=== PATIENT | female | born 1990 | race Caucasian/White ===

== ENCOUNTER 2016-06-16 14:26 | Emergency (ER) | payer MEDICAID, OTHER ==
[~2016-06-16 14:26] MED LIST: PREN1CAP33 PO
--- NOTE | 2016-06-16 15:29 | PD ---
HPI Chief Complaint SOB, back pain, headache Date Seen: Jun 16, 2016 Travel History International Travel<30 Days: No Contact w/Intl Traveler<30Days: No History of Present Illness HPI Ms. Joyce is a 25-year-old 012 at 28 weeks gestation (patient of [facility]) who presents with complaints of shortness of breath, headache, and recent upper back pain. Patient states that back pain began occurring suddenly last night and has resolved. Patient states approximately 1 week ago she began having shortness of breath and intermittent headaches. Patient states that shortness of breath is with activity. Patient denies wheezing, cough, or upper respiratory congestion. Patient states that headaches are not associated with visual symptoms or nausea. Will movement. Patient denies vaginal bleeding, vaginal discharge, chest pain, or other symptoms. Patient reports history of gestational hypertension with her first gestation, but denies problems with her most recent gestation. Patient reports unremarkable history with exception of anemia. Patient states that she has been anemic chronically, has required iron supplementation for sometime. Patient does not report family history of anemia, and states that she had large menstrual periods prior to becoming . Patient does not report knowledge of any bleeding disorder. Per review of labs, patient had most recent hemoglobin of 9.4 in 2015. Patient Rh-, needs Rhogam Para: 2 : 3 History Past Medical History Narrative Medical Anemia Gestational hypertension Obstetric History Obstetric History 002 Full term vaginal delivery 5 years ago Full term vaginal delivery 2 years ago GHTN 1 of 2 prior gestations Past Surgical History Surgical History: No Previous Surgery Family History Family History: Negative Social History Alcohol Use: No Tobacco Use: No Substance Abuse: No Allergies-Medications (Allergen,Severity, Reaction): Coded Allergies: No Known Allergies (Verified , 06/08/16) Home Meds Active Scripts Vit W/ Fe Polysacch C (Vitafol Fe+ 90-1-200 & 50 mg)1 Cap Cap1 Tab PO DAILY #30 BOTTLE Ref 11 Prov:Therese Arnett 01/20/16 Vit W/ Fe Polysacch C (Vitafol Fe+ 90-1-200 & 50 mg)1 Cap Cap Sample #2 Prov:Therese Arnett 01/20/16 Review of Systems General / Constitutional: No: Fever, Chills Cardiovascular: No: Chest Pain or Discomfort Respiratory: Short of Breath, No: Cough, Wheezing Gastrointestinal: No: Nausea, Vomiting Genitourinary: No: Urgency, Dysuria Physical Exam HR 94 BP 107/69 O2 sat 100% Narrative GENERAL: Well-nourished, well-developed patient. SKIN: Warm and dry. HEAD: Normocephalic and atraumatic. EYES: No scleral icterus. No injection or drainage. ENT: No nasal drainage noted. Mucous membranes pink. Airway patent. NECK: Supple, trachea midline. No JVD. CARDIOVASCULAR: Regular rate and rhythm without murmurs. Normal rate currently; mild tachycardia on initial HR RESPIRATORY: CTAB, normal rate. No nasal flaring or signs of distress. ABDOMEN/GI: Abdomen soft, non-tender, bowel sounds present, no rebound, no guarding Gravid EXTREMITIES: No cyanosis or edema. BACK: Nontender without obvious deformity. No CVA tenderness. NEUROLOGICAL: Awake and alert. Motor and sensory function grossly within normal limits. GENITOURINARY: External Genitalia: intact and normal in appearance Cervix: Dilatation: 1cm Effacement: 30% Station: -3 Membranes: Intact Uterine Contractions: Irritability FHT's: Category: 1 Baseline: 130 Reactive: Y Variability: Mod Decels: None MDM Medical Record Reviewed: Yes Interpretation(s) 25-year-old 012 at 28 weeks gestation (patient of [facility]) -SOB, headache x1 week -PMH anemia; last Hgb 9.4 -VS- normotensive, normal HR. O2 Sat 100% -Cat 1 rhythm -Occ contractions -Cervix 1/30%/-3 Plan: -Patient encouraged to take Ferrous Sulfate 325mg BID -F/U with PCP at [facility] in 3-5 days -Will give Terbutaline 0.25mg x1 for contractions Contractions ceased following Terbutaline; patient discharged home Diagnosis Diagnosis: Primary Impression: Anemia complicating Disposition: 01 DISCHARGE HOME Condition: Stable Tom Lomas MD R2 Jun 16, 2016 15:29
[2016-06-16] MEDS ORDERED: TERBUTALINE INJ 1 MG/ML AMP ONE (15:48)
[2016-06-16] MEDS ORDERED: TERBUTALINE INJ 1 MG/ML AMP SQ ONE (16:00)
--- NOTE | 2016-06-16 16:31 | PD ---
History of Present Illness Date Seen: Jun 16, 2016 History of Present Illness This patient is 25-year-old white female at 29 weeks who is followed by the [facility]. She presents complaining of shortness of breath, headache, back pain between the scapula has resolved prior to getting here patient's heart rate tracing is reactive and she is having a few small amplitude contractions. Cervix is closed to fingertip at the external os. The patient was given 1 singles subcutaneous shot this terbutaline 25 in the contractions went away, she has no CVA tenderness on exam and her lungs are clear to auscultation her pulse ox is 98-99% saturation and a respiratory rate is normal Impression is headache shortness of breath back pain all relatively normal pains and problem seen in . She is encouraged to bedrest as much as possible increase her fluid intake use Tylenol liberally for pain and heating pad or hot bath as well for other symptoms. She is to follow-up with her OB provider Holden Ruiz II, MD Jun 16, 2016 16:31
[2016-06-16] MEDS ORDERED: FERR325T PO (16:40)
[2016-08-18] MEDS ORDERED: AMOX500C PO (10:03)
== END 2016-06-16 17:01 | disposition home or self-care (01) ==
LOC: HOBED 14:26
DX: O99.013 Anemia complicating pregnancy, third trimester (principal); R51 Headache; R06.02 Shortness of breath; M54.9 Dorsalgia, unspecified
CPT/HCPCS: 96372; 99284; J3105

== ENCOUNTER 2016-08-21 05:22 | Inpatient (IN) | payer MEDICAID, OTHER ==
[2016-08-21] VITALS (14 sets, daily range): BP systolic 112–148; BP diastolic 68–90; PULSE 71–86; RESP 16–18; TEMP 97.7–98.8; O2SAT 99–100
[~2016-08-21 05:22] MED LIST changes: +AMOX500C PO; +FERR325T PO
[2016-08-21] MEDS ORDERED: FAMOTIDINE 20 MG TAB PO STA (05:34)
[2016-08-21] MEDS ORDERED: LIDOCAINE HCL 1% 50 ML VIAL ONE (05:41)
[2016-08-21] MEDS ORDERED: OXYTOCIN 30 UNITS-500ML PREMIX 500 ML ONE (05:41)
[2016-08-21] MEDS ORDERED: OXYTOCIN 10 UNIT/ML AMP ONE ×2 (05:43→05:49)
--- NOTE | 2016-08-21 05:43 | PD ---
HPI Chief Complaint Contractions Date Seen: Aug 21, 2016 Time Seen: 05:42 Travel History International Travel<30 Days: No Contact w/Intl Traveler<30Days: No Known Affected Area: No History of Present Illness HPI 26-year-old at 37 weeks and 4 days comes in complaining of contractions that began earlier this morning with spontaneous rupture membranes at 04 10 and appeared to be clear. Patient has had an uncomplicated care and she is group B strep positive. 2 prior uncomplicated vaginal deliveries Para: 2 : 4 Miscarriage: 1 History Past Medical History Medical History: Denies Significant Hx Obstetric History Obstetric History 2 Past Surgical History Surgical History: No Previous Surgery Family History Family History: Negative Social History Alcohol Use: No Tobacco Use: No Substance Abuse: No Allergies-Medications (Allergen,Severity, Reaction): Coded Allergies: No Known Allergies (Verified , 08/18/16) Home Meds Active Scripts Amoxicillin 500 Mg [id number] Mg PO TID #30 CAP Ref 0 Prov:Therese Arnett 08/18/16 Vit W/ Fe Polysacch C (Vitafol Fe+ 90-1-200 & 50 mg)1 Cap Cap1 Tab PO DAILY #30 BOTTLE Ref 11 Prov:Therese ArnettP 01/20/16 Vit W/ Fe Polysacch C (Vitafol Fe+ 90-1-200 & 50 mg)1 Cap Cap Sample #2 Prov:Therese Arnett [facility] 01/20/16 Reported Medications Ferrous Sulfate 325 Mg [id number] Mg PO BID #60 TAB Ref 0 06/16/16 Review of Systems Except as stated in HPI: all other systems reviewed are Neg Physical Exam Narrative GENERAL: Well-nourished, well-developed patient. SKIN: Warm and dry. HEAD: Normocephalic and atraumatic. EYES: No scleral icterus. No injection or drainage. ENT: No nasal drainage noted. Mucous membranes pink. Airway patent. NECK: Supple, trachea midline. No JVD. CARDIOVASCULAR: Regular rate and rhythm without murmurs, gallops, or rubs. RESPIRATORY: Breath sounds equal bilaterally. No accessory muscle use. BREASTS: Bilateral exam showed no masses , no retractions, no nipple discharge. ABDOMEN/GI: Abdomen soft, non-tender, bowel sounds present, no rebound, no guarding Gravid to [-] weeks size Fundal Height: [-37] GENITOURINARY: External Genitalia: intact and normal in appearance BUS glands: [-Normal] Cervix: [8-] Dilatation: [-] Effacement: [100] Station: [-2-] Presentation: [-] Membranes: [ruptured] Uterine Contractions: [-] FHT's: Category: [1-] Baseline: [150-] Reactive: [-Moderate] Variability: [-Moderate] Decels: [-Absent] EXTREMITIES: No cyanosis or edema. BACK: Nontender without obvious deformity. No CVA tenderness. NEUROLOGICAL: Awake and alert. Motor and sensory grossly within normal limits. Five out of 5 muscle strength in all muscle groups. Normal speech. Data Data Orders Famotidine (Pepcid) (08/21/16 05:34) Ob (2e) Additional Admit Info (08/21/16 05:38) MDM Medical Record Reviewed: Yes Plan 26-year-old who is at 37 weeks 4 days in advance labor anticipate a very quick vaginal delivery Patient is group B strep positive but it is unlikely that adequate treatment will be completed prior to delivery Diagnosis Diagnosis: Primary Impression: Mother positive for group B Streptococcus colonization Additional Impressions: with 37 weeks completed gestation 37 weeks gestation of Labor, sherrieous Miranda Hooker MD Aug 21, 2016 05:43
[2016-08-21] MEDS ORDERED: LACTATED RINGER'S 1000 ML INJ 1,000 ML IV PRN (05:57)
--- NOTE | 2016-08-21 05:57 | HHI.HP ---
History & Physical H&P HPI HPI Chief Complaint Contractions Date Seen: Aug 21, 2016 Time Seen: 05:42 Travel History International Travel<30 Days: No Contact w/Intl Traveler<30Days: No Known Affected Area: No History of Present Illness HPI 26-year-old at 37 weeks and 4 days comes in complaining of contractions that began earlier this morning with spontaneous rupture membranes at 04 10 and appeared to be clear. Patient has had an uncomplicated care and she is group B strep positive. 2 prior uncomplicated vaginal deliveries Para: 2 : 4 Miscarriage: 1 History (Limited) History Past Medical History Medical History: Denies Significant Hx Obstetric History Obstetric History 2 Past Surgical History Surgical History: No Previous Surgery Family History Family History: Negative Social History Alcohol Use: No Tobacco Use: No Substance Abuse: No Allergies-Medications Allergies-Medications (Allergen,Severity, Reaction): Coded Allergies: No Known Allergies (Verified , 08/18/16) Home Meds Active Scripts Amoxicillin 500 Mg [id number] Mg PO TID #30 CAP Ref 0 Prov:Therese Arnett 08/18/16 Vit W/ Fe Polysacch C (Vitafol Fe+ 90-1-200 & 50 mg)1 Cap Cap1 Tab PO DAILY #30 BOTTLE Ref 11 Prov:Therese Arnett 01/20/16 Vit W/ Fe Polysacch C (Vitafol Fe+ 90-1-200 & 50 mg)1 Cap Cap Sample #2 Prov:Therese Arnett 01/20/16 Reported Medications Ferrous Sulfate 325 Mg [id number] Mg PO BID #60 TAB Ref 0 06/16/16 ROS Review of Systems Except as stated in HPI: all other systems reviewed are Neg Physical Exam Physical Exam Narrative GENERAL: Well-nourished, well-developed patient. SKIN: Warm and dry. HEAD: Normocephalic and atraumatic. EYES: No scleral icterus. No injection or drainage. ENT: No nasal drainage noted. Mucous membranes pink. Airway patent. NECK: Supple, trachea midline. No JVD. CARDIOVASCULAR: Regular rate and rhythm without murmurs, gallops, or rubs. RESPIRATORY: Breath sounds equal bilaterally. No accessory muscle use. BREASTS: Bilateral exam showed no masses , no retractions, no nipple discharge. ABDOMEN/GI: Abdomen soft, non-tender, bowel sounds present, no rebound, no guarding Gravid to [-] weeks size Fundal Height: [-37] GENITOURINARY: External Genitalia: intact and normal in appearance BUS glands: [-Normal] Cervix: [8-] Dilatation: [-] Effacement: [100] Station: [-2-] Presentation: [-] Membranes: [ruptured] Uterine Contractions: [-] FHT's: Category: [1-] Baseline: [150-] Reactive: [-Moderate] Variability: [-Moderate] Decels: [-Absent] EXTREMITIES: No cyanosis or edema. BACK: Nontender without obvious deformity. No CVA tenderness. NEUROLOGICAL: Awake and alert. Motor and sensory grossly within normal limits. Five out of 5 muscle strength in all muscle groups. Normal speech. Data Data Data Orders Famotidine (Pepcid) (08/21/16 05:34) Ob (2e) Additional Admit Info (08/21/16 05:38) MDM MDM Medical Record Reviewed: Yes Plan 26-year-old who is at 37 weeks 4 days in advance labor anticipate a very quick vaginal delivery Patient is group B strep positive but it is unlikely that adequate treatment will be completed prior to delivery Diagnosis Diagnosis: Primary Impression: Mother positive for group B Streptococcus colonization Additional Impressions: with 37 weeks completed gestation 37 weeks gestation of Labor, Miranda Hughes MD Aug 21, 2016 05:57
[2016-08-21 05:58] LABS: MEAN CORPUSCULAR HGB CONC 29.9 % (32.0-36.0)
[2016-08-21] MEDS ORDERED: OXYTOCIN 30 UNITS-500ML PREMIX 500 ML IV ONE (06:00)
[2016-08-21] MEDS ORDERED: ZOLPIDEM TARTRATE 5 MG TAB PO PRN (06:00)
[2016-08-21] MEDS ORDERED: SODIUM CHLORID 0.9% 500 ML INJ 500 ML IV PRN (06:00)
[2016-08-21] MEDS ORDERED: MINERAL OIL 10 ML VIAL TOPICAL PRN (06:00)
[2016-08-21] MEDS ORDERED: WITCH HAZEL 50%/GLYCERIN 12.5% 40 PAD JAR TOPICAL PRN (06:00)
[2016-08-21] MEDS ORDERED: ALUMINUM/MAGNESIUM/SIMETH 30 ML CUP PO PRN (06:00)
[2016-08-21] MEDS ORDERED: ONDANSETRON ODT 4 MG TAB PO PRN (06:00)
[2016-08-21] MEDS ORDERED: BENZOCAINE 20% TOPICAL SPRAY 60 ML CAN TOPICAL PRN (06:00)
[2016-08-21] MEDS ORDERED: CITRIC ACID-SODIUM CITRATE LIQ 30 ML UDC PO SCH (06:00)
[2016-08-21] MEDS ORDERED: DOCUSATE SODIUM 50 MG/SENNA 8.6 MG TAB PO PRN (06:00)
[2016-08-21] MEDS ORDERED: oxyCODONE/ACETAMINOPHEN 5 MG/325 MG TAB PO PRN (06:00)
[2016-08-21] MEDS ORDERED: LIDOCAINE HCL 1% 50 ML VIAL I-DERMAL PRN (06:00)
[2016-08-21] MEDS ORDERED: LIDOCAINE HCL 1% 50 ML VIAL INFIL PRN (06:00)
[2016-08-21] MEDS ORDERED: SODIUM CHLORIDE 0.9% FLUSH 10 ML FLUSH IV FLUSH PRN (06:00)
[2016-08-21] MEDS ORDERED: SODIUM CHLOR 0.9% 1000 ML INJ 1,000 ML IV PRN (06:17)
[2016-08-21 06:19] LABS: BLOOD, URINE NEG (NEG); COMMENT (UR) CULT NOT INDICATED; CULTURE IF INDICATED CULT NOT INDICATED; GLUCOSE,URINE NEG (NEG); KETONE, URINE NEG (NEG); MUCUS URINE FEW /lpf (OCC); NITRITE,URINE NEG (NEG); PH, URINE 6.5 (5.0-8.5); SQUAMOUS EPITHELIAL CELL URINE 2 /hpf (0-5); URINE COLOR YELLOW (YELLW/STRAW)
[2016-08-21 06:25] LABS: AUTOMATED NEUTROPHIL # 5.7 TH/MM3 (1.8-7.7); BASOPHIL % 0.4 % (0.0-2.0); EOSINOPHIL % 0.3 % (0.0-4.0); LYMPH % 22.7 % (9.0-44.0); LYMPHOCYTE # 1.8 TH/MM3 (1.0-4.8); MEAN CELL VOLUME 58.4 FL (80.0-100.0); MEAN CORPUSCULAR HEMOGLOBIN 17.5 PG (27.0-34.0); MONO % 5.9 % (0.0-8.0); NEUT % 70.7 % (16.0-70.0); PLATELET COUNT 203 TH/MM3 (150-450); RED BLOOD COUNT 3.12 MIL/MM3 (4.00-5.30); RED CELL DISTRIBUTION WIDTH 19.5 % (11.6-17.2); WHITE BLOOD COUNT 8.1 TH/MM3 (4.0-11.0)
[2016-08-21 06:29] LABS: HEMO FLAGS AUTO DIFF
[2016-08-21 06:31] LABS: HEMATOCRIT 18.2 % (35.0-46.0)
[2016-08-21 07:08] LABS: PLATELET ESTIMATE SMEAR NORMAL (NORMAL); PLATELET MORPHOLOGY ENLARGED (NORMAL)
[2016-08-21 07:09] LABS: KERATOCYTES OCC (NORMAL); SCAN/DIFF AUTO DIFF CONFIRMED
[2016-08-21 07:20] LABS: REVIEW FLAG FINAL
[2016-08-21 07:21] LABS: HEMATOCRIT 17.3 % (35.0-46.0)
[2016-08-21] MEDS: IBUPROFEN 600 MG TAB PO PRN ×3 (07:41→21:17)
[2016-08-21] MEDS ORDERED: SODIUM CHLOR 0.9% 250 ML INJ 250 ML IV ONE (08:00)
[2016-08-21] MEDS ORDERED: ACETAMINOPHEN 325 MG TAB PO PRN (08:00)
[2016-08-21 08:01] LABS: AMPHETAMINE, URINE NEG (NEG); BARBITURATES, URINE NEG (NEG); COCAINE, URINE NEG (NEG)
[2016-08-21] MEDS ORDERED: SODIUM CHLORIDE 0.9% FLUSH 10 ML FLUSH IV FLUSH SCH (09:00)
[2016-08-21] MEDS: ACETAMINOPHEN 325 MG TAB PO PRN ×3 (10:54→21:17)
[2016-08-21] MEDS ORDERED: MEASLES, MUMPS, RUBELLA VACCINE 0.5 ML VIAL SQ ONE (16:00)
[2016-08-21] MEDS ORDERED: DIPHTH/TETANUS/ACEL PERTUSSIS (BOOSTER) 0.5 ML VIAL/PFS IM ONE (16:00)
[2016-08-21 17:49] LABS: HEMATOCRIT 23.2 % (35.0-46.0); REVIEW FLAG FINAL
[2016-08-22] MEDS: LACTATED RINGER'S 1000 ML INJ 1,000 ML IV SCH ×2 (05:57→13:57)
--- NOTE | 2016-08-22 07:30 | HHI.OB ---
Subjective Post Day: 1 Remarks day # 1 AFVSS overnight. Decreased lochia. Denies dysuria. No breast tenderness. She is feeding the baby via breast. Appetite good. No nausea or vomiting. Ambulating well. Denies calf pain or shortness of breath. Otherwise, she is doing well this morning and has no other concerns. Objective Vitals/I&O Vital Signs Date Time Temp Pulse Resp B/P Pulse Ox O2 Delivery O2 Flow Rate FiO2 08/21/16 21:00 97.8 75 16 112/87 08/21/16 16:00 77 18 132/78 100 08/21/16 16:00 98.4 08/21/16 13:01 98.8 76 18 128/76 100 08/21/16 12:45 98.3 86 18 148/79 08/21/16 12:40 98.3 86 16 148/79 100 08/21/16 10:45 120/79 08/21/16 10:45 72 99 08/21/16 10:45 97.7 72 18 120/79 99 08/21/16 10:35 99 08/21/16 10:30 97.8 71 18 142/72 08/21/16 10:27 97.8 71 18 142/72 Objective Remarks GENERAL: Well-nourished, well-developed female in no apparent distress. CARDIOVASCULAR: Regular rate and rhythm without murmurs, gallops, or rubs. RESPIRATORY: Breath sounds equal bilaterally. No accessory muscle use. ABDOMEN/GI: Abdomen soft, non-tender. Fundus: Firm, non-tender at umbilicus. GENITOURINARY: Light to moderate bleeding. EXTREMITIES: No cyanosis or edema, non-tender, without signs of DVT. Medications and IVs Current Medications Medications (Trade) Dose Ordered Sig/La Route Start Time Stop Time Status Last Admin Lactated Ringer's 1,000 ml @ 125 mls/hr Q8H IV 08/21/16 05:57 Lactated Ringer's 1,000 ml @ 3,000 mls/hr Q20M PRN IV 08/21/16 05:57 (NS 1000 ml Inj) 1,000 ml @ 100 mls/hr Q10H PRN IV 08/21/16 06:17 (fentaNYL INJ) 50 mcg Q1H PRN IV PUSH 08/21/16 06:00 (fentaNYL INJ) 100 mcg Q1H PRN IV PUSH 08/21/16 06:00 (Muri-Lube Oil) 10 ml UNSCH PRN TOPICAL 08/21/16 06:00 (NS Flush) 2 ml BID IV FLUSH 08/21/16 09:00 (NS Flush) 2 ml UNSCH PRN IV FLUSH 08/21/16 06:00 (Tylenol) 650 mg Q4H PRN PO 08/21/16 06:00 08/21/16 21:17 (Motrin) 600 mg Q6H PRN PO 08/21/16 06:00 08/21/16 21:17 (Percocet 5-325 Mg) 2 tab Q4H PRN PO 08/21/16 06:00 (Americaine 20% Top Spr) 1 spray Q4H PRN TOPICAL 08/21/16 06:00 08/21/16 10:54 (Tucks Pads) 1 applic QID PRN TOPICAL 08/21/16 06:00 08/21/16 10:54 (Kacie-Colace) 2 tab Q12H PRN PO 08/21/16 06:00 (Ambien) 5 mg HS PRN PO 08/21/16 06:00 (Mag-Al Plus Susp Liq) 15 ml Q8H PRN PO 08/21/16 06:00 (Zofran Odt) 4 mg Q6H PRN PO 08/21/16 06:00 Assessment/Plan Problem List: (1) Spontaneous vaginal delivery Assessment and Plan 26 y/o female who is PPD# 1 s/p . -Continue routine care. -Tylenol and Motrin PRN pain. -Encouraged OOB. Advised pelvic rest for 6 wks. -Re: ctrl, she would like tubal ligation. She signed consents prior to and intends to re-consent as outpatient through [facility]. -Anticipate discharge today or tomorrow. Anemia -Hgb 5.4 on admission. S/p 2U PRBCs, with repeat 7.1/23.2. Patient is asymptomatic. -Will discharge with recommendation to take iron-containing prenatals SHELBY Ruiz and Floridalma Canchola MD R1 Aug 22, 2016 07:30
[2016-08-22 08:02] LABS: MEAN CORPUSCULAR HGB CONC 29.6 % (32.0-36.0)
[2016-08-22 08:09] VITALS: BP 137/85; PULSE 95; RESP 18; TEMP 98.3
[2016-08-22] MEDS: FERROUS SULFATE 325 MG (65 MG ELEMENTAL IRON) TAB PO SCH ×3 (09:10→18:14)
[2016-08-22] MEDS: IBUPROFEN 600 MG TAB PO PRN ×2 (09:11→18:14)
[2016-08-22] MEDS: ACETAMINOPHEN 325 MG TAB PO PRN ×2 (09:11→18:14)
[2016-08-22 09:48] LABS: HEMATOCRIT 23.8 % (35.0-46.0); MEAN CELL VOLUME 63.9 FL (80.0-100.0); MEAN CORPUSCULAR HEMOGLOBIN 18.9 PG (27.0-34.0); PLATELET COUNT 205 TH/MM3 (150-450); RED BLOOD COUNT 3.73 MIL/MM3 (4.00-5.30); RED CELL DISTRIBUTION WIDTH 23.5 % (11.6-17.2); REVIEW FLAG FINAL; WHITE BLOOD COUNT 9.5 TH/MM3 (4.0-11.0)
[2016-08-22 21:00] VITALS: BP 145/82; PULSE 55; RESP 18; TEMP 97.7
[2016-08-23] MEDS: ACETAMINOPHEN 325 MG TAB PO PRN (05:20)
[2016-08-23] MEDS: IBUPROFEN 600 MG TAB PO PRN (05:20)
[2016-08-23 06:01] LABS: HEMATOCRIT 22.8 % (35.0-46.0); REVIEW FLAG FINAL
[2016-08-23] MEDS ORDERED: ACET1TAB86 PO (06:14)
[2016-08-23] MEDS ORDERED: IBUP-232 PO (06:14)
--- NOTE | 2016-08-23 06:14 | HHI.DCPOC ---
Discharge Care Plan Diagnosis: (1) Anemia complicating (2) Spontaneous vaginal delivery Report Symptoms to Your Doctor -Temperature above 100.5 degrees -Redness, of incision or excessive or foul smelling drainage -Unusual pain or calf pain -Increased vaginal bleeding -Painful or difficulty urinating -Feelings of extreme sadness or anxiety after 2 weeks Goals to Promote Your Health * To prevent worsening of your condition and complications * To maintain your health at the optimal level Directions to Meet Your Goals Take your medications as prescribed Follow your dietary instruction Follow activity as directed Ensure plenty of rest for recovery Drink fluids for hydration Keep your appointments as scheduled Take your immunizations and boosters as scheduled If your symptoms worsen call your PCP, if no PCP go to Urgent Care Center or Emergency Room Smoking is Dangerous to Your Health. Avoid second hand smoke Call the 24-hour crisis hotline for domestic abuse at Floridalma Landeros MD R1 Aug 23, 2016 06:14
--- NOTE | 2016-08-23 06:44 | HHI.OB ---
Subjective Post Day: 2 Remarks day # 2. AFVSS overnight. Decreased lochia. Denies dysuria. No breast tenderness. She is feeding the baby via breast. Appetite good. No nausea or vomiting. Ambulating well. Denies calf pain or shortness of breath. Otherwise, she is doing well this morning and has no other concerns. She denies dizziness, shortness of breath, fatigue and notes she was taking iron during for her anemia. She wants to go home this morning. (Floridalma Landeros MD R1) Objective Vitals/I&O Vital Signs Date Time Temp Pulse Resp B/P Pulse Ox O2 Delivery O2 Flow Rate FiO2 08/22/16 21:00 97.7 08/22/16 21:00 55 18 145/82 08/22/16 08:09 98.3 95 18 137/85 Objective Remarks GENERAL: Well-nourished, well-developed female in no apparent distress. CARDIOVASCULAR: Regular rate and rhythm without murmurs, gallops, or rubs. RESPIRATORY: Breath sounds equal bilaterally. No accessory muscle use. ABDOMEN/GI: Abdomen soft, non-tender. Fundus: Firm, non-tender at umbilicus. GENITOURINARY: Light to moderate bleeding. EXTREMITIES: No cyanosis or edema, non-tender, without signs of DVT. Medications and IVs Current Medications Medications (Trade) Dose Ordered Sig/La Route Start Time Stop Time Status Last Admin Lactated Ringer's 1,000 ml @ 125 mls/hr Q8H IV 08/21/16 05:57 Lactated Ringer's 1,000 ml @ 3,000 mls/hr Q20M PRN IV 08/21/16 05:57 (NS 1000 ml Inj) 1,000 ml @ 100 mls/hr Q10H PRN IV 08/21/16 06:17 (fentaNYL INJ) 50 mcg Q1H PRN IV PUSH 08/21/16 06:00 (fentaNYL INJ) 100 mcg Q1H PRN IV PUSH 08/21/16 06:00 (Muri-Lube Oil) 10 ml UNSCH PRN TOPICAL 08/21/16 06:00 (NS Flush) 2 ml BID IV FLUSH 08/21/16 09:00 (NS Flush) 2 ml UNSCH PRN IV FLUSH 08/21/16 06:00 (Tylenol) 650 mg Q4H PRN PO 08/21/16 06:00 08/23/16 05:20 (Motrin) 600 mg Q6H PRN PO 08/21/16 06:00 08/23/16 05:20 (Percocet 5-325 Mg) 2 tab Q4H PRN PO 08/21/16 06:00 (Americaine 20% Top Spr) 1 spray Q4H PRN TOPICAL 08/21/16 06:00 08/21/16 10:54 (Tucks Pads) 1 applic QID PRN TOPICAL 08/21/16 06:00 08/21/16 10:54 (Kacie-Colace) 2 tab Q12H PRN PO 08/21/16 06:00 (Ambien) 5 mg HS PRN PO 08/21/16 06:00 (Mag-Al Plus Susp Liq) 15 ml Q8H PRN PO 08/21/16 06:00 (Zofran Odt) 4 mg Q6H PRN PO 08/21/16 06:00 (Ferrous Sulfate) 325 mg TIDAC PO 08/22/16 09:00 08/22/16 18:14 (Floridalma Landeros MD R1) Assessment/Plan Problem List: (1) Spontaneous vaginal delivery Assessment and Plan 26 y/o female who is PPD# 2 s/p . -Continue routine care. -Tylenol and Motrin PRN pain. -Encouraged OOB. Advised pelvic rest for 6 wks. -Re: ctrl, she would like tubal ligation. She signed consents prior to and intends to re-consent as outpatient through [facility]. -Anticipate discharge today. Anemia -Hgb 5.4 on admission. S/p 2U PRBCs, with repeat H%H approximately 7.0 x 3, stable. Patient is asymptomatic. -Will discharge with recommendation to continue taking PNV and supplemental iron with stool softeners Will discuss with Dr. Zafar (Floridalma Landeros MD R1) Attestation Patient seen and examined at bedside. Agree with resident's assessment/plan. (Deana Zafar MD) Floridalma Landeros MD R1 Aug 23, 2016 06:44 Deana Zafar MD Aug 23, 2016 09:19
[2016-08-23] MEDS: FERROUS SULFATE 325 MG (65 MG ELEMENTAL IRON) TAB PO SCH (07:25)
[2016-08-23 08:00] VITALS: BP 130/91; PULSE 94; RESP 16; TEMP 98.6
[2016-08-23] MEDS ORDERED: FERR325T20 PO (10:17)
[2016-08-23] MEDS ORDERED: DOCU100C PO (10:17)
[2016-08-25 15:25] LABS: BATH SALTS (MDPV) UR NEG (NEG); ECSTASY (MDMA) UR NEG (NEG); GABAPENTIN UR NEG (NEG); HEROIN (6-ACETYLMORPHINE) UR NEG (NEG); HYDROMORPHONE U NEG (NEG); K2 SPICE UR NEG (NEG); OBMETHADONE UR NEG (NEG); OXYCODONE (PERCODAN) NEG (NEG); PHENCYCLIDINE URINE NEG (NEG)
--- NOTE | 2016-09-01 11:54 | PD.OB.DELI ---
Delivery Date: Aug 21, 2016 Anesthesia: None Episiotomy: None Vaginal Delivery: Normal Presentation: Occiput anterior Nuchal Cord: None Delayed cord clamping (45 sec): Yes Infant: Female One Minute : 8 Five Minute : 9 Weight: 3355gms Placenta: Spontaneous delivery, Intact, 3 vessel cord Laceration: No lacerations Miranda Hooker MD Sep 01, 2016 11:54
== END 2016-08-23 10:35 | disposition home or self-care (01) | DRG 775 ==
LOC: HOBED 05:22 → H2EB 05:41 → H1EA 08:27
PROVIDERS: ADMIT Obstetrics & Gynecology Obstetrics; ATTEND Obstetrics & Gynecology Obstetrics
PROC: 10E0XZZ Delivery of Products of Conception, External Approach (ICD-10-PCS; principal; 2016-08-21)
PROC: 30233N1 Transfusion of Nonautologous Red Blood Cells into Peripheral Vein, Percutaneous Approach (ICD-10-PCS; 2016-08-21)
DX: O99.824 Streptococcus B carrier state complicating childbirth (principal); O62.3 Precipitate labor; O99.02 Anemia complicating childbirth; D64.9 Anemia, unspecified; Z3A.37 37 weeks gestation of pregnancy; Z37.0 Single live birth
CPT/HCPCS: 36430; 59025; 80307; 81001; 85014; 85018; 85025; 85027; 86850; 86900; 86901; 86920; 99285; G0481; J2590; P9016

== ENCOUNTER 2017-07-25 09:27 | Inpatient (IN) | payer MEDICAID ==
[2017-07-25] VITALS (9 sets, daily range): BP systolic 107–126; BP diastolic 53–69; PULSE 68–108; RESP 16–20; TEMP 97.6–98.5; O2SAT 100
[~2017-07-25] VITALS: Ht 170.2 cm; Wt 70.0 kg
[2017-07-25 10:29] LABS: AUTOMATED NEUTROPHIL # 1.7 TH/MM3 (1.8-7.7); BASOPHIL % 0.6 % (0.0-2.0); EOSINOPHIL % 0.5 % (0.0-4.0); LYMPH % 33.9 % (9.0-44.0); MEAN CELL VOLUME 59.4 FL (80.0-100.0); MEAN CORPUSCULAR HEMOGLOBIN 17.2 PG (27.0-34.0); MEAN PLATELET VOLUME 8.6 FL (7.0-11.0); MONO % 8.3 % (0.0-8.0); MONOCYTE # 0.2 TH/MM3 (0-0.9); NEUT % 56.7 % (16.0-70.0); PLATELET COUNT 249 TH/MM3 (150-450); RED BLOOD COUNT 3.16 MIL/MM3 (4.00-5.30)
[2017-07-25 10:34] LABS: HEMOGLOBIN 5.4 GM/DL (11.6-15.3)
[2017-07-25 10:35] LABS: HEMATOCRIT 18.8 % (35.0-46.0)
--- NOTE | 2017-07-25 11:00 | PD ---
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 Patient states she has become short of breath and lightheaded with ambulation over the last 2-3 days. She reports 3 months ago she had her IUD removed and had had light spotting up to this point. [facility], however her insurance is changed and she has not seen her since her most recent normal Pap smear which was when her IUD was removed. Patient denies any pain. She does not think she was recently . She has no other symptoms to report at this time. PFSH Past Medical History Anemia: Yes (BLOOD TRANSFUSIONS ) Diminished Hearing: No Gastrointestinal Disorders: Yes (HEARTBURN ) Hypertension: Yes ( INDUCED ) Medical other: Yes (STD ) Immunizations Current: No Tetanus Vaccination: < 5 Years Influenza Vaccination: No ?: Not LMP: 07/15/17 : 3 Para: 3 Miscarriage: 0 : 0 Past Surgical History Surgical History: No Previous Surgery Social History Alcohol Use: Yes (occ) Tobacco Use: No Substance Use: No Allergies-Medications (Allergen,Severity, Reaction): Coded Allergies: No Known Allergies (Verified , 09/27/16) Reported Meds & Prescriptions Reported Meds & Active Scripts Active Review of Systems Except as stated in HPI: all other systems reviewed are Neg Physical Exam Narrative GENERAL: Well-nourished female patient, no acute distress. SKIN: Focused skin assessment warm/dry. Pallor HEAD: Atraumatic. Normocephalic. EYES: Pupils equal and round. No scleral icterus. No injection or drainage. ENT: No nasal bleeding or discharge. Mucous membranes pink and moist. NECK: Trachea midline. No JVD. CARDIOVASCULAR: Tachycardic rate and rhythm. No murmur appreciated. RESPIRATORY: No accessory muscle use. Clear to auscultation. Breath sounds equal bilaterally. GASTROINTESTINAL: Abdomen soft, non-tender, nondistended. Hepatic and splenic margins not palpable. GENITOURINARY: Normal external genitalia without lesions or erythema. Vaginal vault with large amount of dark red blood. Cervical os was closed with active bleeding. Surrounding cervical cells tissue appeared yellowed and cobblestoning. Moderate cervical motion tenderness. Uterus nontender and nonenlarged. Bilateral adnexa nontender without masses. MUSCULOSKELETAL: No obvious deformities. No clubbing. No cyanosis. No edema. NEUROLOGICAL: Awake and alert. No obvious cranial nerve deficits. Motor grossly within normal limits. Normal speech. PSYCHIATRIC: Appropriate mood and affect; insight and judgment normal. Data Data Last Documented VS Vital Signs Date Time Temp Pulse Resp B/P (MAP) Pulse Ox O2 Delivery O2 Flow Rate FiO2 07/25/17 09:31 98.5 108 20 126/56 (79) 100 Orders Orders Complete Blood Count With Diff (07/25/17 09:35) Comprehensive Metabolic Panel (07/25/17 11:01) Coag Profile (07/25/17 11:01) Type And Screen (07/25/17 11:01) Red Blood Cells (Rbc) (07/25/17 11:01) Blood Product Administration (07/25/17 11:01) Sodium Chlor 0.9% 250 Ml Inj (Ns 250 Ml (07/25/17 11:15) Iv Access Insert/Monitor (07/25/17 11:02) Beta Hcg (Quant/Titer) (07/25/17 11:06) Wet Prep Profile (07/25/17 11:29) Gc And Chlamydia Pcr (07/25/17 11:29) Labs Laboratory Tests Test 07/25/17 10:15 07/25/17 11:41 White Blood Count 3.0 TH/MM3 Red Blood Count 3.16 MIL/MM3 Hemoglobin 5.4 GM/DL Hematocrit 18.8 % Mean Corpuscular Volume 59.4 FL Mean Corpuscular Hemoglobin 17.2 PG Mean Corpuscular Hemoglobin Concent 29.0 % Red Cell Distribution Width 19.0 % Platelet Count 249 TH/MM3 Mean Platelet Volume 8.6 FL Neutrophils (%) (Auto) 56.7 % Lymphocytes (%) (Auto) 33.9 % Monocytes (%) (Auto) 8.3 % Eosinophils (%) (Auto) 0.5 % Basophils (%) (Auto) 0.6 % Neutrophils # (Auto) 1.7 TH/MM3 Lymphocytes # (Auto) 1.0 TH/MM3 Monocytes # (Auto) 0.2 TH/MM3 Eosinophils # (Auto) 0.0 TH/MM3 Basophils # (Auto) 0.0 TH/MM3 CBC Comment DIFF FINAL Differential Comment Prothrombin Time 10.8 SEC Prothromb Time International Ratio 1.1 RATIO Activated Partial Thromboplast Time 21.2 SEC Blood Urea Nitrogen 10 MG/DL Creatinine 0.72 MG/DL Random Glucose 90 MG/DL Total Protein 8.4 GM/DL Albumin 3.6 GM/DL Calcium Level 8.7 MG/DL Alkaline Phosphatase 63 U/L Aspartate Amino Transf (AST/SGOT) 14 U/L Alanine Aminotransferase (ALT/SGPT) 18 U/L Total Bilirubin 0.6 MG/DL Sodium Level 143 MEQ/L Potassium Level 3.8 MEQ/L Chloride Level 108 MEQ/L Carbon Dioxide Level 25.1 MEQ/L Anion Gap 10 MEQ/L Estimat Glomerular Filtration Rate 98 ML/MIN Clue Cells (Wet Prep) NONE SEEN Vaginal Trichomonas (Wet Prep) NONE SEEN Vaginal Yeast (Wet Prep) NONE SEEN MDM Medical Decision Making Medical Screen Exam Complete: Yes Emergency Medical Condition: Yes Medical Record Reviewed: Yes Differential Diagnosis Dysfunctional uterine bleeding versus menses versus miscarriage Narrative Course 27-year-old female with no significant medical history presents to the emergency department for heavy vaginal bleeding 1 week with associated shortness of breath and lightheaded sensation. Patient does have a large amount of dark red blood in the vaginal vault. She is pallor and mildly tachycardic. Laboratory Tests Test 07/25/17 10:15 07/25/17 11:41 White Blood Count 3.0 TH/MM3 Red Blood Count 3.16 MIL/MM3 Hemoglobin 5.4 GM/DL Hematocrit 18.8 % Mean Corpuscular Volume 59.4 FL Mean Corpuscular Hemoglobin 17.2 PG Mean Corpuscular Hemoglobin Concent 29.0 % Red Cell Distribution Width 19.0 % Platelet Count 249 TH/MM3 Mean Platelet Volume 8.6 FL Neutrophils (%) (Auto) 56.7 % Lymphocytes (%) (Auto) 33.9 % Monocytes (%) (Auto) 8.3 % Eosinophils (%) (Auto) 0.5 % Basophils (%) (Auto) 0.6 % Neutrophils # (Auto) 1.7 TH/MM3 Lymphocytes # (Auto) 1.0 TH/MM3 Monocytes # (Auto) 0.2 TH/MM3 Eosinophils # (Auto) 0.0 TH/MM3 Basophils # (Auto) 0.0 TH/MM3 CBC Comment DIFF FINAL Differential Comment Prothrombin Time 10.8 SEC Prothromb Time International Ratio 1.1 RATIO Activated Partial Thromboplast Time 21.2 SEC Blood Urea Nitrogen 10 MG/DL Creatinine 0.72 MG/DL Random Glucose 90 MG/DL Total Protein 8.4 GM/DL Albumin 3.6 GM/DL Calcium Level 8.7 MG/DL Alkaline Phosphatase 63 U/L Aspartate Amino Transf (AST/SGOT) 14 U/L Alanine Aminotransferase (ALT/SGPT) 18 U/L Total Bilirubin 0.6 MG/DL Sodium Level 143 MEQ/L Potassium Level 3.8 MEQ/L Chloride Level 108 MEQ/L Carbon Dioxide Level 25.1 MEQ/L Anion Gap 10 MEQ/L Estimat Glomerular Filtration Rate 98 ML/MIN Clue Cells (Wet Prep) NONE SEEN Vaginal Trichomonas (Wet Prep) NONE SEEN Vaginal Yeast (Wet Prep) NONE SEEN Patient has hemoglobin of 5.4. Type and screen is complete. 2 units packed red blood cells as ordered. I discussed the plan with my attending physician. Patient will be admitted to [facility] for further evaluation. This plan is discussed with the patient. she is in agreement with this plan of care. Diagnosis Primary Impression: Symptomatic anemia Additional Impression: Vaginal bleeding Admitting Information Admitting Physician Requests: Admit Condition: Stable Annalise Anderson July 25, 2017 11:00
[2017-07-25] MEDS ORDERED: SODIUM CHLOR 0.9% 250 ML INJ 250 ML IV ONE (11:15)
[2017-07-25 11:49] LABS: INTERNATIONAL NORMALIZED RATIO 1.1 RATIO; PROTHROMBIN TIME - PATIENT 10.8 SEC (9.8-11.6)
[2017-07-25 12:11] LABS: ALBUMIN 3.6 GM/DL (3.4-5.0); AST (GOT) 14 U/L (15-37); BICARBONATE 25.1 MEQ/L (21.0-32.0); BLOOD UREA NITROGEN 10 MG/DL (7-18); CALCIUM 8.7 MG/DL (8.5-10.1); CHLORIDE 108 MEQ/L (98-107); CREATININE 0.72 MG/DL (0.50-1.00); GLOMERULAR FILTRATION RATE 98 ML/MIN (>89); GLUCOSE,RANDOM 90 MG/DL (74-106); SODIUM (NA) 143 MEQ/L (136-145)
[2017-07-25 12:16] LABS: ALKALINE PHOSPHATASE 63 U/L (45-117); ALT (GPT) 18 U/L (10-53); TOTAL BILIRUBIN ADULT 0.6 MG/DL (0.2-1.0); TOTAL PROTEIN 8.4 GM/DL (6.4-8.2)
[2017-07-25] MEDS: SODIUM CHLOR 0.9% 1000 ML INJ 1,000 ML IV SCH (12:56)
[2017-07-25] MEDS ORDERED: SENNOSIDES 8.6 MG TAB PO PRN (13:00)
[2017-07-25] MEDS ORDERED: MAGNESIUM HYDROXIDE SUSP 30 ML CUP PO PRN (13:00)
[2017-07-25] MEDS ORDERED: BISACODYL 10 MG SUPP RECTAL PRN (13:00)
[2017-07-25] MEDS ORDERED: SODIUM CHLORIDE 0.9% FLUSH 10 ML FLUSH IV FLUSH PRN (13:00)
[2017-07-25] MEDS ORDERED: LACTULOSE SYRUP 20 GM/30 ML CUP PO PRN (13:00)
[2017-07-25] MEDS ORDERED: NALOXONE HCL 0.4 MG/ML AMP IV PUSH PRN (13:00)
--- NOTE | 2017-07-25 15:04 | PD ---
Data Data Last Documented VS Vital Signs Date Time Temp Pulse Resp B/P (MAP) Pulse Ox O2 Delivery O2 Flow Rate FiO2 07/25/17 09:31 98.5 108 20 126/56 (79) 100 Orders Orders Complete Blood Count With Diff (07/25/17 09:35) Comprehensive Metabolic Panel (07/25/17 11:01) Coag Profile (07/25/17 11:01) Type And Screen (07/25/17 11:01) Red Blood Cells (Rbc) (07/25/17 11:01) Blood Product Administration (07/25/17 11:01) Sodium Chlor 0.9% 250 Ml Inj (Ns 250 Ml (07/25/17 11:15) Iv Access Insert/Monitor (07/25/17 11:02) Beta Hcg (Quant/Titer) (07/25/17 11:06) Wet Prep Profile (07/25/17 11:29) Gc And Chlamydia Pcr (07/25/17 11:29) Admit Order (Ed Use Only) (07/25/17 12:58) Admit To Inpatient (07/25/17 ) Vital Signs (Adult) Q4H (07/25/17 12:56) Activity Oob Ad Enriqueta (07/25/17 12:56) Intake + Output JUSTYN.QSHIFT (07/25/17 12:56) Diet Regular Basic (07/25/17 Lunch) Sodium Chlor 0.9% 1000 Ml Inj (Ns 1000 M (07/25/17 12:56) Sodium Chloride 0.9% Flush (Ns Flush) (07/25/17 13:00) Sodium Chloride 0.9% Flush (Ns Flush) (07/25/17 21:00) Complete Blood Count With Diff (07/26/17 06:00) Scd Bilateral/Knee High JUSTYN.BID (07/25/17 12:56) Naloxone Inj (Narcan Inj) (07/25/17 13:00) Docusate Sodium-Senna (Kacie-Colace) (07/25/17 21:00) Magnesium Hydroxide Liq (Milk Of Magnesi (07/25/17 13:00) Sennosides (Senokot) (07/25/17 13:00) Bisacodyl Supp (Dulcolax Supp) (07/25/17 13:00) Lactulose Liq (Lactulose Liq) (07/25/17 13:00) Inpatient Certification (07/25/17 ) Consult Gynecology (07/25/17 ) Labs Laboratory Tests Test 07/25/17 10:15 07/25/17 11:41 White Blood Count 3.0 TH/MM3 Red Blood Count 3.16 MIL/MM3 Hemoglobin 5.4 GM/DL Hematocrit 18.8 % Mean Corpuscular Volume 59.4 FL Mean Corpuscular Hemoglobin 17.2 PG Mean Corpuscular Hemoglobin Concent 29.0 % Red Cell Distribution Width 19.0 % Platelet Count 249 TH/MM3 Mean Platelet Volume 8.6 FL Neutrophils (%) (Auto) 56.7 % Lymphocytes (%) (Auto) 33.9 % Monocytes (%) (Auto) 8.3 % Eosinophils (%) (Auto) 0.5 % Basophils (%) (Auto) 0.6 % Neutrophils # (Auto) 1.7 TH/MM3 Lymphocytes # (Auto) 1.0 TH/MM3 Monocytes # (Auto) 0.2 TH/MM3 Eosinophils # (Auto) 0.0 TH/MM3 Basophils # (Auto) 0.0 TH/MM3 CBC Comment DIFF FINAL Differential Comment Prothrombin Time 10.8 SEC Prothromb Time International Ratio 1.1 RATIO Activated Partial Thromboplast Time 21.2 SEC Blood Urea Nitrogen 10 MG/DL Creatinine 0.72 MG/DL Random Glucose 90 MG/DL Total Protein 8.4 GM/DL Albumin 3.6 GM/DL Calcium Level 8.7 MG/DL Alkaline Phosphatase 63 U/L Aspartate Amino Transf (AST/SGOT) 14 U/L Alanine Aminotransferase (ALT/SGPT) 18 U/L Total Bilirubin 0.6 MG/DL Sodium Level 143 MEQ/L Potassium Level 3.8 MEQ/L Chloride Level 108 MEQ/L Carbon Dioxide Level 25.1 MEQ/L Anion Gap 10 MEQ/L Estimat Glomerular Filtration Rate 98 ML/MIN Human Chorionic Gonadotropin, Quant LESS THAN 1 MIU/ML Clue Cells (Wet Prep) NONE SEEN Vaginal Trichomonas (Wet Prep) NONE SEEN Vaginal Yeast (Wet Prep) NONE SEEN Chlamydia trachomatis DNA (PCR) NOT DETECTED Neisseria gonorrhoeae DNA (PCR) NOT DETECTED MDM Supervised Visit with ADY: Yes Narrative Course The history, exam, and medical decision-making in the associated midlevel provider note were completed with my assistance. I reviewed and agree with the findings presented. I attest that I had a [id number] encounter with the patient on the same day, and personally performed and documented my assessment and findings in the medical record. *My assessment and Findings: This is a 27-year-old female who presents to the emergency department with heavy vaginal bleeding having had her IUD removed 3 months ago. She has been increasingly lightheaded and dizzy. She has a hemoglobin of 5.4 here in the emergency department which is microcytic consistent with likely iron deficiency. Patient will be admitted to the hospital for blood transfusion and gynecology consultation. Her vital signs are reassuring and I suspect this is acute on chronic. Diagnosis Primary Impression: Symptomatic anemia Additional Impression: Vaginal bleeding Condition: Stable Yissel Chatterjee MD July 25, 2017 15:04
--- NOTE | 2017-07-25 15:05 | PD.CONS ---
HPI Chief Complaint Vaginal bleeding Date Seen: July 25, 2017 Travel History International Travel<30 Days: No Contact w/Intl Traveler<30Days: No Known Affected Area: No History of Present Illness HPI The patient is a very pleasant 27-year-old female admitted due to heavy vaginal bleeding 1 week and found to have severe symptomatic anemia with a hemoglobin of 5.4. 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 Patient reports over about the past week she has had very heavy vaginal bleeding. She states she has had to use up to 4 boxes of pads and tampons over the past week, with each box consisting of 14-15 pads or tampons. She denies any current abdominal or pelvic pain. She does endorse having sharp pelvic pain a few days ago lasting for about an hour that resolved with her lying down. She denies any recurrence of this type of pain. She states she did not see a medical provider for this issue at that time or take any medications. She states she was having dyspnea, dizziness when ambulating, and fatigue prior to her admission here. She denies any other abnormal vaginal discharge or pruritus. She states she had a copper IUD removed about 3 months ago. The patient is a , she last delivered in August 2016 and had a copper IUD placed following her delivery for contraception. She states while having her copper IUD in place she had constant spotting. Prior to having this copper IUD placed in prior to her she reported regular menstrual cycles without any heavy bleeding or intermenstrual bleeding. She does endorse a history of iron deficiency anemia. Denies any bleeding disorders or family history of this. She states she is unsure what she would like to use for contraception going forward. Para: 3 : 3 History Past Medical History Narrative Medical Iron deficiency anemia Obstetric History Obstetric History 3 prior vaginal deliveries, 2011, 2014, 2016 Past Surgical History Surgical History: No Previous Surgery Family History Narrative Family History Denies any family history of bleeding disorders, or pertinent uterine or cervical pathology Social History Alcohol Use: Yes (Endorses occasional alcohol intake) Tobacco Use: No Substance Abuse: No Allergies-Medications (Allergen,Severity, Reaction): Coded Allergies: No Known Allergies (Verified Allergy, Unknown, 07/25/17) Review of Systems Except as stated in HPI: all other systems reviewed are Neg Physical Exam Vital Signs Date Time Temp Pulse Resp B/P (MAP) Pulse Ox O2 Delivery O2 Flow Rate FiO2 07/25/17 14:13 97.9 90 18 112/68 100 07/25/17 14:04 102 16 116/63 (80) 99 07/25/17 13:58 98.3 102 16 116/63 100 07/25/17 13:50 97.9 90 18 112/68 (83) 100 07/25/17 09:31 98.5 108 20 126/56 (79) 100 Narrative GENERAL: Well-nourished, well-developed patient. SKIN: Warm and dry. HEAD: Normocephalic and atraumatic. EYES: No scleral icterus. No injection or drainage. ENT: No nasal drainage noted. Mucous membranes pink. Airway patent. NECK: Supple, trachea midline. No JVD. CARDIOVASCULAR: Regular rate and rhythm without murmurs, gallops, or rubs. RESPIRATORY: Breath sounds equal bilaterally. No accessory muscle use. ABDOMEN/GI: Abdomen soft, non-tender, no rebound, no guarding GENITOURINARY (see documentation per Dr. Singletary, CONDUCTOR ORCHESTRA physician) EXTREMITIES: No cyanosis or edema. BACK: Nontender without obvious deformity. NEUROLOGICAL: Awake and alert. Motor and sensory grossly within normal limits. Normal speech. Data Data Vital Signs Reviewed: Yes Orders Orders Complete Blood Count With Diff (07/25/17 09:35) Comprehensive Metabolic Panel (07/25/17 11:01) Coag Profile (07/25/17 11:01) Type And Screen (07/25/17 11:01) Red Blood Cells (Rbc) (07/25/17 11:01) Blood Product Administration (07/25/17 11:01) Sodium Chlor 0.9% 250 Ml Inj (Ns 250 Ml (07/25/17 11:15) Iv Access Insert/Monitor (07/25/17 11:02) Beta Hcg (Quant/Titer) (07/25/17 11:06) Wet Prep Profile (07/25/17 11:29) Gc And Chlamydia Pcr (07/25/17 11:29) Admit Order (Ed Use Only) (07/25/17 12:58) Admit To Inpatient (07/25/17 ) Vital Signs (Adult) Q4H (07/25/17 12:56) Activity Oob Ad Enriqueta (07/25/17 12:56) Intake + Output JUSTYN.QSHIFT (07/25/17 12:56) Diet Regular Basic (07/25/17 Lunch) Sodium Chlor 0.9% 1000 Ml Inj (Ns 1000 M (07/25/17 12:56) Sodium Chloride 0.9% Flush (Ns Flush) (07/25/17 13:00) Sodium Chloride 0.9% Flush (Ns Flush) (07/25/17 21:00) Complete Blood Count With Diff (07/26/17 06:00) Scd Bilateral/Knee High JUSTYN.BID (07/25/17 12:56) Naloxone Inj (Narcan Inj) (07/25/17 13:00) Docusate Sodium-Senna (Kacie-Colace) (07/25/17 21:00) Magnesium Hydroxide Liq (Milk Of Magnesi (07/25/17 13:00) Sennosides (Senokot) (07/25/17 13:00) Bisacodyl Supp (Dulcolax Supp) (07/25/17 13:00) Lactulose Liq (Lactulose Liq) (07/25/17 13:00) Inpatient Certification (07/25/17 ) Consult Gynecology (07/25/17 ) (Hub Use Only)Inp Phy Cons/Ref (07/25/17 ) Labs Laboratory Tests Test 07/25/17 10:15 07/25/17 11:41 White Blood Count 3.0 Red Blood Count 3.16 Hemoglobin 5.4 Hematocrit 18.8 Mean Corpuscular Volume 59.4 Mean Corpuscular Hemoglobin 17.2 Mean Corpuscular Hemoglobin Concent 29.0 Red Cell Distribution Width 19.0 Platelet Count 249 Mean Platelet Volume 8.6 Neutrophils (%) (Auto) 56.7 Lymphocytes (%) (Auto) 33.9 Monocytes (%) (Auto) 8.3 Eosinophils (%) (Auto) 0.5 Basophils (%) (Auto) 0.6 Neutrophils # (Auto) 1.7 Lymphocytes # (Auto) 1.0 Monocytes # (Auto) 0.2 Eosinophils # (Auto) 0.0 Basophils # (Auto) 0.0 CBC Comment DIFF FINAL Differential Comment Prothrombin Time 10.8 Prothromb Time International Ratio 1.1 Activated Partial Thromboplast Time 21.2 Blood Urea Nitrogen 10 Creatinine 0.72 Random Glucose 90 Total Protein 8.4 Albumin 3.6 Calcium Level 8.7 Alkaline Phosphatase 63 Aspartate Amino Transf (AST/SGOT) 14 Alanine Aminotransferase (ALT/SGPT) 18 Total Bilirubin 0.6 Sodium Level 143 Potassium Level 3.8 Chloride Level 108 Carbon Dioxide Level 25.1 Anion Gap 10 Estimat Glomerular Filtration Rate 98 Human Chorionic Gonadotropin, Quant LESS THAN 1 Clue Cells (Wet Prep) NONE SEEN Vaginal Trichomonas (Wet Prep) NONE SEEN Vaginal Yeast (Wet Prep) NONE SEEN Chlamydia trachomatis DNA (PCR) NOT DETECTED Neisseria gonorrhoeae DNA (PCR) NOT DETECTED MDM Medical Record Reviewed: Yes Plan 27 year old female with heavy vaginal bleeding x1 week for which [employer] CLASSIFIER TENDER is consulted, admitted with severe symptomatic anemia. Serum hcg is < 1. TVUS has been ordered per primary, will follow results. Discussed with patient option to pursue an OCP taper vs starting Lysteda, patient is desiring a form of contraception and elected to pursue starting an OCP. Will plan to start patient on a taper of monophasic OCP with 35 mcg estrogen daily 5 tabs on day 1, 4 tabs day 2, 3 tabs day 3, 2 tabs day 4, followed by one tab daily for the remainder of the initial pack, followed by one week of placebo tablets and continuing monthly pack thereafter. Discussed that the patient may have nausea while doing this so will have prn antiemetic available. Admitting diagnosis: SYMPTOMATIC ANEMIA; VAGINAL BLEEDING Condition: Stable Abdon Howard MD R2 July 25, 2017 15:05
--- NOTE | 2017-07-25 16:01 | HHI.PR ---
Objective Vitals Vital Signs Date Time Temp Pulse Resp B/P (MAP) Pulse Ox O2 Delivery O2 Flow Rate FiO2 07/25/17 14:13 97.9 90 18 112/68 100 07/25/17 14:04 102 16 116/63 (80) 99 07/25/17 13:58 98.3 102 16 116/63 100 07/25/17 13:50 97.9 90 18 112/68 (83) 100 07/25/17 09:31 98.5 108 20 126/56 (79) 100 Result Diagram: 07/25/17 1015 07/25/17 1015 Mary Mcdaniel MD July 25, 2017 16:01
--- NOTE | 2017-07-25 16:14 | HHI.HP ---
[facility] No Primary Care Physician Admission Diagnosis SYMPTOMATIC ANEMIA; VAGINAL BLEEDING Diagnoses: Travel History International Travel<30 Days: No Contact w/Intl Traveler <30 Da: No Traveled to Known Affected Are: No History of Present Illness Patient is a 27-year-old female with PMHx of post anemia, induced HTN presents to the emergency room with complaints of vaginal bleeding 1 week which worsened the past 2 days. She also complained of dizziness, feeling faint, with nausea. She states that she has been laying down most of the days this past week. She uses a box of super absorbent pads every 1.5 days. She states that she had a copper IUD removed 3 months ago. She had it in for 6 months however she had breakthrough bleeding and shooting pains and did not tolerate it. She thinks she had it removed end of April. She has not been on any control since. Her last Pap was a year ago. She states that she also is passing large blood clots. This is the first time she has had such bleeding. She denies any chest pain, worsening shortness of breath, nausea seems to have resolved. A few days ago she did have some sharp shooting pain on the left lower quadrant however that resolved. Currently she denies any cramping with the bleeding. Pt mentions to me that after she had her last baby, she did require 2 units of PRBC post . Review of Systems Except as stated in HPI: all other systems reviewed are Neg Past Family Social History Past Medical History anemia post anemia induced HTN Past Surgical History none Reported Medications Reported Meds & Active Scripts Active Allergies: Coded Allergies: No Known Allergies (Verified Allergy, Unknown, 07/25/17) Family History Mother had some sort of cancer she thinks maybe ovarian but is not sure Father is healthy Social History She denies any smoking history, denies illegal drug use or alcohol use. Physical Exam Vital Signs Vital Signs Date Time Temp Pulse Resp B/P (MAP) Pulse Ox O2 Delivery O2 Flow Rate FiO2 07/25/17 14:13 97.9 90 18 112/68 100 07/25/17 14:04 102 16 116/63 (80) 99 07/25/17 13:58 98.3 102 16 116/63 100 07/25/17 13:50 97.9 90 18 112/68 (83) 100 07/25/17 09:31 98.5 108 20 126/56 (79) 100 Physical Exam GENERAL: laying in bed HEAD: Atraumatic. Normocephalic. No temporal or scalp tenderness. EYES:Extraocular motions intact. No scleral icterus. No injection or drainage. ENT: Nose without drainage. Airway patent. NECK: Trachea midline. CARDIOVASCULAR: Regular rate and rhythm with ?1/6 MARVEL RESPIRATORY: Clear to auscultation. Breath sounds equal bilaterally. No wheezes GASTROINTESTINAL: Abdomen soft, non-tender, nondistended. No guarding. : deferred MUSCULOSKELETAL: Extremities without edema. moves extremities w no difficulties NEUROLOGICAL: Awake and alert. Normal speech. Laboratory Laboratory Tests Test 07/25/17 10:15 07/25/17 11:41 White Blood Count 3.0 Red Blood Count 3.16 Hemoglobin 5.4 Hematocrit 18.8 Mean Corpuscular Volume 59.4 Mean Corpuscular Hemoglobin 17.2 Mean Corpuscular Hemoglobin Concent 29.0 Red Cell Distribution Width 19.0 Platelet Count 249 Mean Platelet Volume 8.6 Neutrophils (%) (Auto) 56.7 Lymphocytes (%) (Auto) 33.9 Monocytes (%) (Auto) 8.3 Eosinophils (%) (Auto) 0.5 Basophils (%) (Auto) 0.6 Neutrophils # (Auto) 1.7 Lymphocytes # (Auto) 1.0 Monocytes # (Auto) 0.2 Eosinophils # (Auto) 0.0 Basophils # (Auto) 0.0 CBC Comment DIFF FINAL Differential Comment Prothrombin Time 10.8 Prothromb Time International Ratio 1.1 Activated Partial Thromboplast Time 21.2 Blood Urea Nitrogen 10 Creatinine 0.72 Random Glucose 90 Total Protein 8.4 Albumin 3.6 Calcium Level 8.7 Alkaline Phosphatase 63 Aspartate Amino Transf (AST/SGOT) 14 Alanine Aminotransferase (ALT/SGPT) 18 Total Bilirubin 0.6 Sodium Level 143 Potassium Level 3.8 Chloride Level 108 Carbon Dioxide Level 25.1 Anion Gap 10 Estimat Glomerular Filtration Rate 98 Human Chorionic Gonadotropin, Quant LESS THAN 1 Clue Cells (Wet Prep) NONE SEEN Vaginal Trichomonas (Wet Prep) NONE SEEN Vaginal Yeast (Wet Prep) NONE SEEN Chlamydia trachomatis DNA (PCR) NOT DETECTED Neisseria gonorrhoeae DNA (PCR) NOT DETECTED Result Diagram: 07/25/17 1015 07/25/17 1015 Caprin VTE Risk Assessment Caprini VTE Risk Assessment: No/Low Risk (score <= 1) Caprini Risk Assessment Model Point Value = 1 Point Value = 2 Point Value = 3 Point Value = 5 Age 41-60 Minor surgery BMI > 25 kg/m2 Swollen legs Varicose veins or History of unexplained or recurrent spontaneous Oral contraceptives or hormone replacement Sepsis (< 1 month) Serious lung disease, including pneumonia (< 1 month) Abnormal pulmonary function Acute myocardial infarction Congestive heart failure (< 1 month) History of inflammatory bowel disease Medical patient at bed rest Age 61-74 Arthroscopic surgery Major open surgery (> 45 min) Laparoscopic surgery (> 45 min) Malignancy Confined to bed (> 72 hours) Immobilizing plaster cast Central venous access Age >= 75 History of VTE Family history of VTE Factor V Leiden Prothrombin [id number] Lupus anticoagulant Anticardiolipin antibodies Elevated serum homocysteine Heparin-induced thrombocytopenia Other congenital or acquired thrombophilia Stroke (< 1 month) Elective arthroplasty Hip, pelvis, or leg fracture Acute spinal cord injury (< 1 month) Prophylaxis Regimen Total Risk Factor Score Risk Level Prophylaxis Regimen 0-1 Low Early ambulation 2 Moderate Order ONE of the following: *Sequential Compression Device (SCD) *Heparin 5000 units SQ BID 3-4 Higher Order ONE of the following medications: *Heparin 5000 units SQ TID *Enoxaparin/Lovenox 40 mg SQ daily (WT < 150 kg, CrCl > 30 mL/min) *Enoxaparin/Lovenox 30 mg SQ daily (WT < 150 kg, CrCl > 10-29 mL/min) *Enoxaparin/Lovenox 30 mg SQ BID (WT < 150 kg, CrCl > 30 mL/min) AND/OR *Sequential Compression Device (SCD) 5 or more Highest Order ONE of the following medications: *Heparin 5000 units SQ TID (Preferred with Epidurals) *Enoxaparin/Lovenox 40 mg SQ daily (WT < 150 kg, CrCl > 30 mL/min) *Enoxaparin/Lovenox 30 mg SQ daily (WT < 150 kg, CrCl > 10-29 mL/min) *Enoxaparin/Lovenox 30 mg SQ BID (WT < 150 kg, CrCl > 30 mL/min) AND *Sequential Compression Device (SCD) Assessment and Plan Assessment and Plan severe symptomatic hemorrhagic anemia: from vaginal bleeding. ER ordered 2 units PRBC. Pt denies any prior hx of fibroids. Pt received one unit already and will be getting the second one. check H&H post transfusion. If repeat H&H post transfusion<7, will transfuse another 1-2 units pending results to maintain Hb >7. SENIOR INTEGRATION ARCHITECT has been consulted for further eval and recs. I have ordered pelvic U/S. Monitor serial H&H. I will start her on iron tablets as well. Wet prep/trich/GC/chlamydia performed in ED neg. beta HCG <1 Code Status full Discussed Condition With patient and family member Mary Mcdaniel MD July 25, 2017 16:14
[2017-07-25] MEDS ORDERED: diphenhydrAMINE HCL 25 MG CAP PO PRN (16:30)
[2017-07-25] MEDS ORDERED: ACETAMINOPHEN 325 MG TAB PO PRN (16:30)
--- NOTE | 2017-07-25 16:49 | HHI.PR ---
Subjective Remarks [facility] Attending 27 y/o [id number] with IUD removal 3-4 months ago and onset of heavy bleeding about 1 week ago, using 16 pads and tampons daily. She indicates she is interested in contraception, but had the IUD removed because of daily bleeding. She denies tobacco use or smoking. She denies any history of PE, DVT, CVA, or other thrombotic episode. She denies any heart disease or hypertension. She has used OCPs in the past without incident. She reports she is feeling better after the first unit of blood. On physical examination, there is blood pooled in the vagina, approximately 20-30cc. Bleeding including we discussed options for managing heavy bleeding at length. These included OCP taper, high-dose estrogen, high-dose progesterone, and tranexamic acid. We discussed the risks, benefits, and alternatives to each. We discussed with OCPs and estrogen there is a increased risk of thrombotic events including but not limited to PE, DVT, and CVA. We discussed with the OCPs there is a risk of heart attack and hypertension. The patient does not smoke and has done well on OCPs in the past. She is interested in contraception. We also discussed the risks and benefits of high-dose progesterone and transonic acid. This time the patient appears to be good candidate for an OCP taper which will be initiated while as an inpatient. We discussed with the patient that she may experience nausea at the higher dose OCPs and will order medication. All of her questions were answered and OCPs were arranged to be initiated at 5 pills on day 1, 4 pills on day 2, 3 pills on day 3, 2 pills on day 4, followed by 1 pill daily until she completes the pack. She will then start a new pack at 1 pill per day. Would recommend appropriate follow-up care for women within 2-3 days or sooner if needed. All the patient's questions were answered and we will check on her during her hospital stay. Please call for any other issues. Objective Vital Signs Date Time Temp Pulse Resp B/P (MAP) Pulse Ox O2 Delivery O2 Flow Rate FiO2 07/25/17 14:13 97.9 90 18 112/68 100 07/25/17 14:04 102 16 116/63 (80) 99 07/25/17 13:58 98.3 102 16 116/63 100 07/25/17 13:50 97.9 90 18 112/68 (83) 100 07/25/17 09:31 98.5 108 20 126/56 (79) 100 I/O 07/24/17 07/24/17 07/24/17 07/25/17 07/25/17 07/25/17 06:59 14:59 22:59 06:59 14:59 22:59 Intake Total 400 ml Balance 400 ml Intake Packed Cells 400 ml Result Diagram: 07/25/17 1015 07/25/17 1015 Therese Singletary MD July 25, 2017 16:49
[2017-07-25] MEDS ORDERED: NORGTAB10 PO (16:59)
[2017-07-25] MEDS: ONDANSETRON ODT 4 MG TAB PO PRN (18:25)
[2017-07-25] MEDS ORDERED: PROMETHAZINE HCL 25 MG TAB PO PRN (19:15)
[2017-07-25] MEDS ORDERED: [UNRECOGNIZED DRUG - OTHER] PO ONE (21:00)
--- NOTE | 2017-07-25 21:05 | RADRPT ---
EXAM DATE/TIME: 07/25/2017 19:00 [place] COMPARISON: No previous studies available for comparison. INDICATIONS : Bleeding. MEDICAL HISTORY : Hypertension. . Heartburn. Anemia. Blood transfusions. SURGICAL HISTORY : None. ENCOUNTER: Initial ACUITY: 1 week PAIN SCORE: 1/10 LOCATION: Bilateral pelvis MEASUREMENTS: UTERUS: 10.5 x 5.9 x 6.9 cm ENDOMETRIAL STRIPE: >20 mm RIGHT OVARY: 4.2 x 2.3 x 2.3 cm LEFT OVARY: 4.2 x 2.9 x 3.5 cm FINDINGS: UTERUS: The endometrium is thickened measuring over 2 cm. RIGHT OVARY: There are numerous peripheral follicles. LEFT OVARY: Numerous peripheral follicles are seen. There is a 2 cm dominant cyst seen at the left ovary. MISCELLANEOUS: No free fluid. CONCLUSION: 1. Very thickened endometrium. 2. Numerous follicles. Ulysses Hutchinson MD on July 25, 2017 at 20:56 Board Certified Radiologist. This report was verified electronically.
[2017-07-25] MEDS: DOCUSATE SODIUM 50 MG/SENNA 8.6 MG TAB PO SCH (21:14)
[2017-07-25] MEDS: FERROUS SULFATE 325 MG (65 MG ELEMENTAL IRON) TAB PO SCH (21:14)
[2017-07-25] MEDS: SODIUM CHLORIDE 0.9% FLUSH 10 ML FLUSH IV FLUSH SCH (21:15)
[2017-07-26] VITALS (10 sets, daily range): BP systolic 95–119; BP diastolic 40–70; PULSE 64–76; RESP 17–18; TEMP 97.3–98.4; O2SAT 98–100
[2017-07-26 00:08] LABS: HEMATOCRIT 23.9 % (35.0-46.0); HEMOGLOBIN 7.6 GM/DL (11.6-15.3)
[2017-07-26] MEDS: SODIUM CHLOR 0.9% 1000 ML INJ 1,000 ML IV SCH ×2 (02:50→14:50)
[2017-07-26 06:26] LABS: AUTOMATED NEUTROPHIL # 3.2 TH/MM3 (1.8-7.7); BASOPHIL % 0.7 % (0.0-2.0); EOSINOPHIL # 0.1 TH/MM3 (0-0.4); EOSINOPHIL % 1.5 % (0.0-4.0); HEMATOCRIT 22.1 % (35.0-46.0); LYMPH % 32.1 % (9.0-44.0); LYMPHOCYTE # 1.8 TH/MM3 (1.0-4.8); MEAN CORPUSCULAR HEMOGLOBIN 20.8 PG (27.0-34.0); MEAN CORPUSCULAR HGB CONC 31.5 % (32.0-36.0); MEAN PLATELET VOLUME 8.8 FL (7.0-11.0); MONO % 9.3 % (0.0-8.0); MONOCYTE # 0.5 TH/MM3 (0-0.9); NEUT % 56.4 % (16.0-70.0); PLATELET COUNT 208 TH/MM3 (150-450); RED BLOOD COUNT 3.34 MIL/MM3 (4.00-5.30); RED CELL DISTRIBUTION WIDTH 24.5 % (11.6-17.2); WHITE BLOOD COUNT 5.7 TH/MM3 (4.0-11.0)
[2017-07-26 06:42] LABS: HEMOGLOBIN 6.9 GM/DL (11.6-15.3)
[2017-07-26 08:25] LABS: KERATOCYTES OCC (NORMAL); OVALOCYTES 1+ (NORMAL)
[2017-07-26] MEDS: DOCUSATE SODIUM 50 MG/SENNA 8.6 MG TAB PO SCH ×2 (09:00→19:58)
[2017-07-26] MEDS: SODIUM CHLORIDE 0.9% FLUSH 10 ML FLUSH IV FLUSH SCH ×2 (09:00→21:00)
--- NOTE | 2017-07-26 09:49 | HHI.PR ---
OCCUPATIONAL SAFETY SPECIALIST Note Note Patient seen and examined this morning at bedside. No acute events overnight. Patient states he is doing well. Bleeding has improved. GEN: Well-nourished well-developed female sitting up in bed. Cardio: Normal S1-S2. Regular rate and rhythm no murmurs, gallops or rubs Resp: Clear to auscultation bilaterally, no wheezing or rales. Extremities: Well-perfused nontender calves bilaterally. Patient with improved vaginal bleeding after being placed on control If H&H is stable patient is cleared to be discharged from OCCUPATIONAL SAFETY SPECIALIST standpoint Seen discussed with Dr. Singletary. Adela Cisneros MD, R1 July 26, 2017 09:49
[2017-07-26] MEDS: FERROUS SULFATE 325 MG (65 MG ELEMENTAL IRON) TAB PO SCH ×2 (09:50→19:58)
[2017-07-26] MEDS ORDERED: PROM25TA10 PO (09:52)
--- NOTE | 2017-07-26 14:03 | HHI.PR ---
Subjective Remarks Patient continues to have vaginal bleeding today but reports less bleeding today hgb this AM 6.9 Objective Vitals Vital Signs Date Time Temp Pulse Resp B/P (MAP) Pulse Ox O2 Delivery O2 Flow Rate FiO2 07/26/17 12:38 97.8 67 18 110/46 100 07/26/17 12:14 97.6 67 18 119/40 100 07/26/17 12:06 97.6 67 17 119/40 (66) 100 07/26/17 09:32 98.4 69 18 114/53 100 07/26/17 09:17 98.1 65 18 95/48 100 07/26/17 08:08 98.1 65 18 95/48 (64) 100 07/26/17 04:00 98.3 64 18 101/51 (68) 98 07/26/17 00:00 97.3 65 18 111/53 (72) 99 07/25/17 20:00 97.7 68 18 117/53 (74) 100 07/25/17 18:45 98.1 78 20 115/69 100 07/25/17 16:59 97.8 80 20 108/62 100 07/25/17 16:44 97.6 70 18 107/56 100 07/25/17 14:13 97.9 90 18 112/68 100 07/25/17 14:04 102 16 116/63 (80) 99 07/25/17 13:58 98.3 102 16 116/63 100 07/26/17 07/26/17 07/27/17 15:00 23:00 07:00 Intake Total 400 ml Balance 400 ml Packed Cells 400 ml Result Diagram: 07/26/17 0514 07/25/17 1015 Other Results Laboratory Tests Test 07/25/17 10:15 07/25/17 11:41 07/25/17 23:44 07/26/17 05:14 White Blood Count 3.0 TH/MM3 5.7 TH/MM3 Red Blood Count 3.16 MIL/MM3 3.34 MIL/MM3 Hemoglobin 5.4 GM/DL 7.6 GM/DL 6.9 GM/DL Hematocrit 18.8 % 23.9 % 22.1 % Mean Corpuscular Volume 59.4 FL 66.0 FL Mean Corpuscular Hemoglobin 17.2 PG 20.8 PG Mean Corpuscular Hemoglobin Concent 29.0 % 31.5 % Red Cell Distribution Width 19.0 % 24.5 % Platelet Count 249 TH/MM3 208 TH/MM3 Mean Platelet Volume 8.6 FL 8.8 FL Neutrophils (%) (Auto) 56.7 % 56.4 % Lymphocytes (%) (Auto) 33.9 % 32.1 % Monocytes (%) (Auto) 8.3 % 9.3 % Eosinophils (%) (Auto) 0.5 % 1.5 % Basophils (%) (Auto) 0.6 % 0.7 % Neutrophils # (Auto) 1.7 TH/MM3 3.2 TH/MM3 Lymphocytes # (Auto) 1.0 TH/MM3 1.8 TH/MM3 Monocytes # (Auto) 0.2 TH/MM3 0.5 TH/MM3 Eosinophils # (Auto) 0.0 TH/MM3 0.1 TH/MM3 Basophils # (Auto) 0.0 TH/MM3 0.0 TH/MM3 CBC Comment DIFF FINAL AUTO DIFF Differential Comment AUTO DIFF CONFIRMED Prothrombin Time 10.8 SEC Prothromb Time International Ratio 1.1 RATIO Activated Partial Thromboplast Time 21.2 SEC Blood Urea Nitrogen 10 MG/DL Creatinine 0.72 MG/DL Random Glucose 90 MG/DL Total Protein 8.4 GM/DL Albumin 3.6 GM/DL Calcium Level 8.7 MG/DL Alkaline Phosphatase 63 U/L Aspartate Amino Transf (AST/SGOT) 14 U/L Alanine Aminotransferase (ALT/SGPT) 18 U/L Total Bilirubin 0.6 MG/DL Sodium Level 143 MEQ/L Potassium Level 3.8 MEQ/L Chloride Level 108 MEQ/L Carbon Dioxide Level 25.1 MEQ/L Anion Gap 10 MEQ/L Estimat Glomerular Filtration Rate 98 ML/MIN Human Chorionic Gonadotropin, Quant LESS THAN 1 MIU/ML Clue Cells (Wet Prep) NONE SEEN Vaginal Trichomonas (Wet Prep) NONE SEEN Vaginal Yeast (Wet Prep) NONE SEEN Chlamydia trachomatis DNA (PCR) NOT DETECTED Neisseria gonorrhoeae DNA (PCR) NOT DETECTED Platelet Estimate NORMAL Platelet Morphology Comment NORMAL Ovalocytes 1+ Acanthocytes Keratocytes OCC Imaging Last Impressions Pelvis Ultrasound 07/25/17 0000 Signed Impressions: Service Date/Time: Tuesday, July 25, 2017 19:00 - CONCLUSION: 1. Very thickened endometrium. 2. Numerous follicles. Ulysses Hutchinson MD Objective Remarks GENERAL: This is a well-nourished, well-developed patient, in no apparent distress. CARDIOVASCULAR: Regular rate and rhythm RESPIRATORY: Clear to auscultation. Breath sounds equal bilaterally. GASTROINTESTINAL: Abdomen soft, non-tender, nondistended. Normal active bowel sounds MUSCULOSKELETAL: Extremities without clubbing, cyanosis, or edema. NEURO: Alert & Oriented x4 to person, place, time, situation. Moves all ext x4 A/P Problem List: (1) Vaginal bleeding ICD Codes: N93.9 - Abnormal uterine and vaginal bleeding, unspecified Status: Acute (2) Symptomatic anemia ICD Codes: D64.9 - Anemia, unspecified Status: Acute Assessment and Plan severe symptomatic hemorrhagic anemia: from vaginal bleeding. ER ordered 2 units PRBC. Pt denies any prior hx of fibroids. Hgb (07/25) 7.6 -> (07/26) 6.9. Pt received 2 units PRBCs 07/25/17 (07/26) transfuse additional 2 units PRBCs. Check cbc after transfusion completed and in AM COUNCIL MEMBER consulted, appreciate input. COUNCIL MEMBER cleared for DC if H/H stable pelvic U/S reveals: Very thickened endometrium. Numerous follicles. Iron/ferritin was not checked prior to transfusion. Continue iron tablets as well. Wet prep/trich/GC/chlamydia performed in ED neg. beta HCG <1 If H/H stable possible DC tomorrow DVT prophylaxis with SCDs Supervision physician Alia Connor July 26, 2017 14:03
[2017-07-26 18:42] LABS: AUTOMATED NEUTROPHIL # 4.5 TH/MM3 (1.8-7.7); BASOPHIL % 0.7 % (0.0-2.0); EOSINOPHIL # 0.1 TH/MM3 (0-0.4); EOSINOPHIL % 1.4 % (0.0-4.0); HEMATOCRIT 33.2 % (35.0-46.0); HEMOGLOBIN 10.7 GM/DL (11.6-15.3); LYMPH % 27.5 % (9.0-44.0); MEAN CELL VOLUME 70.9 FL (80.0-100.0); MEAN CORPUSCULAR HEMOGLOBIN 22.9 PG (27.0-34.0); MEAN CORPUSCULAR HGB CONC 32.3 % (32.0-36.0); MONO % 6.4 % (0.0-8.0); MONOCYTE # 0.5 TH/MM3 (0-0.9); PLATELET COUNT 282 TH/MM3 (150-450); RED BLOOD COUNT 4.69 MIL/MM3 (4.00-5.30); RED CELL DISTRIBUTION WIDTH 27.4 % (11.6-17.2); WHITE BLOOD COUNT 7.1 TH/MM3 (4.0-11.0)
[2017-07-26 19:16] LABS: BANDS 2 % (0-6); BASOPHILS 1 % (0-2); CORRECTED NUCLEATED RBC 2 /100 WBC (0-0); LYMPHOCYTES 24 % (9-44); MONOCYTES 4 % (0-8); NUCLEATED RED BLOOD CELL 2 (0-0); OVALOCYTES 1+ (NORMAL); POLYS (SEG NEUTROPHILS) 69 % (16-70)
[2017-07-26 19:17] LABS: KERATOCYTES OCC (NORMAL)
[2017-07-26] MEDS: ONDANSETRON ODT 4 MG TAB PO PRN (20:05)
[2017-07-26] MEDS ORDERED: [UNRECOGNIZED DRUG - OTHER] PO ONE (21:00)
[2017-07-27] VITALS: BP 109/65; PULSE 57; RESP 18; TEMP 97.9; O2SAT 99
[2017-07-27 02:29] LABS: AUTOMATED NEUTROPHIL # 4.8 TH/MM3 (1.8-7.7); BASOPHIL # 0.1 TH/MM3 (0-0.2); BASOPHIL % 0.9 % (0.0-2.0); EOSINOPHIL # 0.1 TH/MM3 (0-0.4); EOSINOPHIL % 1.4 % (0.0-4.0); HEMATOCRIT 31.7 % (35.0-46.0); HEMOGLOBIN 10.2 GM/DL (11.6-15.3); LYMPH % 34.3 % (9.0-44.0); LYMPHOCYTE # 2.9 TH/MM3 (1.0-4.8); MEAN CELL VOLUME 70.1 FL (80.0-100.0); MEAN CORPUSCULAR HEMOGLOBIN 22.6 PG (27.0-34.0); MEAN CORPUSCULAR HGB CONC 32.2 % (32.0-36.0); MEAN PLATELET VOLUME 8.4 FL (7.0-11.0); MONO % 7.2 % (0.0-8.0); MONOCYTE # 0.6 TH/MM3 (0-0.9); NEUT % 56.2 % (16.0-70.0); PLATELET COUNT 264 TH/MM3 (150-450); RED BLOOD COUNT 4.52 MIL/MM3 (4.00-5.30); RED CELL DISTRIBUTION WIDTH 27.1 % (11.6-17.2); WHITE BLOOD COUNT 8.5 TH/MM3 (4.0-11.0)
[2017-07-27] MEDS: SODIUM CHLOR 0.9% 1000 ML INJ 1,000 ML IV SCH (04:56)
[2017-07-27 08:00] VITALS: BP 113/64; PULSE 74; RESP 16; TEMP 97.7; O2SAT 98
[2017-07-27] MEDS: DOCUSATE SODIUM 50 MG/SENNA 8.6 MG TAB PO SCH (08:02)
[2017-07-27] MEDS: SODIUM CHLORIDE 0.9% FLUSH 10 ML FLUSH IV FLUSH SCH (08:02)
[2017-07-27 09:10] LABS: OVALOCYTES 1+ (NORMAL)
[2017-07-27] MEDS: FERROUS SULFATE 325 MG (65 MG ELEMENTAL IRON) TAB PO SCH (09:11)
[2017-07-27] MEDS ORDERED: FERR325T20 PO (09:51)
--- NOTE | 2017-07-27 09:52 | HHI.DCPOC ---
Discharge Care Plan Diagnosis: (1) Symptomatic anemia (2) Vaginal bleeding Goals to Promote Your Health * To prevent worsening of your condition and complications * To maintain your health at the optimal level Directions to Meet Your Goals Take your medications as prescribed Follow your dietary instruction Follow activity as directed Keep your appointments as scheduled Take your immunizations and boosters as scheduled If your symptoms worsen call your PCP, if no PCP go to Urgent Care Center or Emergency Room Smoking is Dangerous to Your Health. Avoid second hand smoke Call the 24-hour hour crisis hotline for domestic abuse at Lino Azar MD July 27, 2017 09:52
--- NOTE | 2017-07-27 09:58 | HHI.DS ---
Discharge Summary Admission Date July 25, 2017 at 12:59 Discharge Date: July 27, 2017 Admitting Diagnosis SYMPTOMATIC ANEMIA; VAGINAL BLEEDING (1) Vaginal bleeding ICD Code: N93.9 - Abnormal uterine and vaginal bleeding, unspecified Status: Acute (2) Symptomatic anemia ICD Code: D64.9 - Anemia, unspecified Status: Acute Procedures None Brief History - From Admission Patient is a 27-year-old female with PMHx of post anemia, induced HTN presents to the emergency room with complaints of vaginal bleeding 1 week which worsened the past 2 days. She also complained of dizziness, feeling faint, with nausea. She states that she has been laying down most of the days this past week. She uses a box of super absorbent pads every 1.5 days. She states that she had a copper IUD removed 3 months ago. She had it in for 6 months however she had breakthrough bleeding and shooting pains and did not tolerate it. She thinks she had it removed end of April. She has not been on any control since. Her last Pap was a year ago. She states that she also is passing large blood clots. This is the first time she has had such bleeding. She denies any chest pain, worsening shortness of breath, nausea seems to have resolved. A few days ago she did have some sharp shooting pain on the left lower quadrant however that resolved. Currently she denies any cramping with the bleeding. Pt mentions to me that after she had her last baby, she did require 2 units of PRBC post . CBC/BMP: 07/27/17 0217 07/25/17 1015 Significant Findings Laboratory Tests Test 07/25/17 10:15 07/25/17 11:41 07/25/17 23:44 07/26/17 05:14 White Blood Count 3.0 TH/MM3 (4.0-11.0) Red Blood Count 3.16 MIL/MM3 (4.00-5.30) 3.34 MIL/MM3 (4.00-5.30) Hemoglobin 5.4 GM/DL (11.6-15.3) 7.6 GM/DL (11.6-15.3) 6.9 GM/DL (11.6-15.3) Hematocrit 18.8 % (35.0-46.0) 23.9 % (35.0-46.0) 22.1 % (35.0-46.0) Mean Corpuscular Volume 59.4 FL (80.0-100.0) 66.0 FL (80.0-100.0) Mean Corpuscular Hemoglobin 17.2 PG (27.0-34.0) 20.8 PG (27.0-34.0) Mean Corpuscular Hemoglobin Concent 29.0 % (32.0-36.0) 31.5 % (32.0-36.0) Red Cell Distribution Width 19.0 % (11.6-17.2) 24.5 % (11.6-17.2) Monocytes (%) (Auto) 8.3 % (0.0-8.0) 9.3 % (0.0-8.0) Neutrophils # (Auto) 1.7 TH/MM3 (1.8-7.7) Activated Partial Thromboplast Time 21.2 SEC (24.3-30.1) Total Protein 8.4 GM/DL (6.4-8.2) Aspartate Amino Transf (AST/SGOT) 14 U/L (15-37) Chloride Level 108 MEQ/L (98-107) Ovalocytes 1+ (NORMAL) Keratocytes OCC (NORMAL) Test 07/26/17 17:33 07/27/17 02:17 Hemoglobin 10.7 GM/DL (11.6-15.3) 10.2 GM/DL (11.6-15.3) Hematocrit 33.2 % (35.0-46.0) 31.7 % (35.0-46.0) Mean Corpuscular Volume 70.9 FL (80.0-100.0) 70.1 FL (80.0-100.0) Mean Corpuscular Hemoglobin 22.9 PG (27.0-34.0) 22.6 PG (27.0-34.0) Red Cell Distribution Width 27.4 % (11.6-17.2) 27.1 % (11.6-17.2) Nucleated Red Blood Cells 2 /100 WBC (0-0) Ovalocytes 1+ (NORMAL) 1+ (NORMAL) Keratocytes OCC (NORMAL) Polychromasia 2.0 % (0.0-1.9) PE at Discharge Examined in the presence of the nurse. General: No acute distress. Heart: Regular rate and rhythm. No murmur. Lungs: Clear to auscultation bilaterally. No wheezes, rales, or rhonchi. Breathing is nonlabored. Abdomen: Soft, nontender, nondistended. Extremities: No lower extremity edema. Psych: Alert and oriented. Neuro: Normal speech. No focal deficits noted. Pt update on day of discharge No complaints at this time. Still with some spotting. Wants to go home. Hospital Course The patient was admitted for management of severe anemia secondary to vaginal bleeding. She received a total of 4 units PRBCs during the hospitalization. Gynecology was consulted and started the patient on OCPs. Bleeding improved. Hemoglobin improved following transfusion and remained stable. She was cleared for discharge by gynecology. She was felt to be stable for discharge home. Pt Condition on Discharge: Stable Discharge Disposition: Discharge Home Discharge Time: <= 30 minutes Discharge Instructions DIET: Follow Instructions for: As Tolerated, No Restrictions Activities you can perform: Regular-No Restrictions Follow up Referrals: [facility] - 2-3 Days PCP Follow-up - 1 Week New Medications: Norgestrel-Ethinyl Estradiol (Elinest) 0.3-30 Mg-Mcg Tab 1 TAB PO DAILY for Control, #1 PACK 0 Refills Ferrous Sulfate (Ferosul) 325 Mg (65 Mg Iron) Tablet 325 MG PO BID for Nutritional Supplement, #60 TAB 0 Refills Promethazine (Phenergan) 25 Mg Tablet 25 MG PO Q4H PRN for nausea, #84 Lino Azar MD July 27, 2017 09:58
[2017-07-27] MEDS ORDERED: [UNRECOGNIZED DRUG - OTHER] PO ONE (21:00)
[2017-07-28] MEDS ORDERED: [UNRECOGNIZED DRUG - OTHER] PO ONE (21:00)
[2017-07-29] MEDS ORDERED: [UNRECOGNIZED DRUG - OTHER] PO SCH (21:00)
== END 2017-07-27 10:12 | disposition home or self-care (01) | DRG 761 ==
LOC: NEPC 09:27 → NEDA 12:59 → N06A 14:30
PROVIDERS: ADMIT Family Medicine; ATTEND Family Medicine
PROC: 30233N1 Transfusion of Nonautologous Red Blood Cells into Peripheral Vein, Percutaneous Approach (ICD-10-PCS; principal; 2017-07-25)
DX: N93.9 Abnormal uterine and vaginal bleeding, unspecified (principal); D50.0 Iron deficiency anemia secondary to blood loss (chronic)
CPT/HCPCS: 36430; 76830; 76856; 80053; 84702; 85007; 85014; 85018; 85025; 85027; 85610; 85730; 86850; 86900; 86901; 86920; 87210; 87491; 87591; J7030; J7050; P9016; Q0169